=== PATIENT | male | born 1970 | race Caucasian/White ===

== ENCOUNTER 2018-12-22 17:12 | Inpatient (IN) | payer BC ==
[~2018-12-22] VITALS: Ht 170.2 cm; Wt 95.3 kg
[2018-12-22] MEDS ORDERED: ONDANSETRON HCL 4MG/2ML INJ IV STA (19:19)
[2018-12-22] MEDS ORDERED: SODIUM CHLORIDE 0.9% 1,000 ML IV ONE (19:19)
[2018-12-22] MEDS ORDERED: MORPHINE SULFATE 4 MG/ML CPJ (NOT FOR IM USE) IV STA (19:19)
[2018-12-22 19:52] LABS: BASOPHILS % 0.5 % (0.0-2.0); EOSINOPHILS % 1.3 % (0.0-5.0); HEMATOCRIT. 43.3 % (42.0-52.0); HEMOGLOBIN. 14.6 g/dL (14.0-18.0); LYMPHOCYTES % 12.7 % (20.0-50.0); MEAN CORPUSCULAR HEMOGLOBIN 28.5 pg (28.0-32.0); MEAN CORPUSCULAR VOLUME 84.3 fL (80.0-94.0); MEAN PLATELET VOLUME 6.8 fl (7.4-10.4); MONOCYTES % 8.8 % (2.0-8.0); NEUTROPHILS % 76.7 % (40.0-76.0); PLATELET 364 x1000/uL (130-400); RED BLOOD CELL COUNT 5.13 mill/uL (4.7-6.1); RED CELL DISTRIBUTION WIDTH 13.2 % (11.6-14.6)
[2018-12-22 19:53] LABS: CHLORIDE 101 mEq/L (98-107)
[2018-12-22 19:57] LABS: PARTIAL THROMBOPLASTIN TIME 37.3 sec (23.4-31.0); PROTHROMBIN TIME 10.7 sec (9.6-11.0)
[2018-12-22] MEDS ORDERED: ASPIRIN 81MG TABLET PO ONE (21:45)
[2018-12-22] MEDS ORDERED: ACETAMINOPHEN 325MG TABLET PO PRN (22:00)
[2018-12-22] MEDS ORDERED: ONDANSETRON HCL 4MG/2ML INJ IV PRN (23:30)
[2018-12-22] MEDS ORDERED: MAGNESIUM/ALUMINUM HYDROXIDE/SIMETHICONE 30ML UDC PO PRN (23:30)
[2018-12-22] MEDS ORDERED: LEVOFLOXACIN 500MG PREMIX 100 ML IV SCH (23:30)
[2018-12-22] MEDS ORDERED: CLONIDINE 0.1MG TABLET PO PRN (23:30)
[2018-12-22] MEDS ORDERED: GUAIFENESIN 200MG/10ML SUGAR FREE UDC PO PRN (23:30)
[2018-12-22] MEDS ORDERED: LORAZEPAM 0.5MG TABLET PO PRN (23:30)
[2018-12-22] MEDS ORDERED: VANCOMYCIN 1 G PREMIX 200 ML IV SCH (23:30)
[2018-12-23 01:09] LABS: CLARITY URINE CLEAR (CLEAR); COLOR URINE YELLOW (YELLOW); KETONES URINE NEGATIVE (NEGATIVE); LEUKOCYTE ESTERASE URINE NEGATIVE (NEGATIVE); NITRITE URINE NEGATIVE (NEGATIVE); OCCULT BLOOD URINE 1+ (NEGATIVE); PH URINE 5.5 (4.5-8.0); PROTEIN URINE NEGATIVE (NEGATIVE); SPECIFIC GRAVITY URINE 1.013 (1.005-1.030); UROBILINOGEN URINE 0.2 E.U./dL (0.2-1.0)
[2018-12-23] MEDS ORDERED: CLOP75TA33 PO (01:27)
[2018-12-23] MEDS ORDERED: SIMV40TA5 PO (01:27)
[2018-12-23] MEDS ORDERED: ASPI-1159 PO (01:27)
[2018-12-23 01:42] VITALS: BP 100/62
[2018-12-23] MEDS: HYDROCODONE/ACETAMINOPHEN 10/325MG TABLET PO PRN ×3 (01:45→22:20)
[2018-12-23 02:00] VITALS: BP 100/62
[2018-12-23 04:00] VITALS: BP 90/54
[2018-12-23] MEDS ORDERED: VANCOMYCIN 1500MG in DEXTROSE 5% WATER 250ML IV NR (04:00)
[2018-12-23] MEDS: SODIUM CHLORIDE 0.9% INJ 3ML FLUSH IVF SCH ×3 (06:00→22:11)
[2018-12-23] MEDS ORDERED: LEVOFLOXACIN 500MG PREMIX 100 ML IV SCH (06:00)
[2018-12-23 07:36] LABS: BASOPHILS % 0.5 % (0.0-2.0); EOSINOPHILS % 1.9 % (0.0-5.0); HEMATOCRIT. 38.9 % (42.0-52.0); HEMOGLOBIN. 12.8 g/dL (14.0-18.0); MEAN CORPUSCULAR HEMOGLOBIN 28.2 pg (28.0-32.0); MEAN CORPUSCULAR VOLUME 85.9 fL (80.0-94.0); MEAN PLATELET VOLUME 7.2 fl (7.4-10.4); MONOCYTES % 13.7 % (2.0-8.0); NEUTROPHILS % 69.9 % (40.0-76.0); PLATELET 305 x1000/uL (130-400); RED BLOOD CELL COUNT 4.53 mill/uL (4.7-6.1); RED CELL DISTRIBUTION WIDTH 12.9 % (11.6-14.6)
[2018-12-23 07:51] LABS: CHLORIDE 105 mEq/L (98-107)
[2018-12-23 07:56] LABS: PHOSPHORUS 3.4 mg/dL (2.5-4.9)
[2018-12-23 08:00] VITALS: BP 119/73
[2018-12-23] MEDS: CLOPIDOGREL 75MG TABLET PO SCH (09:10)
[2018-12-23] MEDS: KETOROLAC 30MG/ML VIAL IV PRN ×2 (12:11→19:09)
[2018-12-23] MEDS: VANCOMYCIN 1250MG in DEXTROSE 5% WATER 250ML IV SCH (12:11)
[2018-12-23] MEDS: ACETAMINOPHEN 325MG TABLET PO PRN ×3 (12:12→22:10)
[2018-12-23] MEDS ORDERED: TETANUS, DIPHTHERIA, PERTUSSIS VAC/PF 0.5ML (>7YR OLD) IM ONE (16:30)
[2018-12-23] MEDS ORDERED: PIPERACILLIN/TAZOBACTAM 3.375 G in DEXT 5% WATER 100 ML IV SCH (18:00)
[2018-12-23] MEDS: PIPERACILLIN/TAZ 3.375G PREMIX 50 ML IV SCH (19:09)
[2018-12-23] MEDS: ATORVASTATIN CALCIUM 20MG TABLET PO SCH (22:12)
[2018-12-24] MEDS: PIPERACILLIN/TAZ 3.375G PREMIX 50 ML IV SCH ×4 (00:38→17:54)
[2018-12-24] MEDS: VANCOMYCIN 1250MG in DEXTROSE 5% WATER 250ML IV SCH ×2 (01:48→12:49)
[2018-12-24] MEDS: SODIUM CHLORIDE 0.9% INJ 3ML FLUSH IVF SCH ×3 (05:34→21:38)
[2018-12-24 05:45] LABS: BASOPHILS % 0.6 % (0.0-2.0); HEMATOCRIT. 40.4 % (42.0-52.0); HEMOGLOBIN. 13.6 g/dL (14.0-18.0); LYMPHOCYTES % 14.1 % (20.0-50.0); MEAN CORPUSCULAR HEMOGLOBIN 28.4 pg (28.0-32.0); MEAN CORPUSCULAR VOLUME 84.5 fL (80.0-94.0); MEAN PLATELET VOLUME 6.8 fl (7.4-10.4); MONOCYTES % 13.5 % (2.0-8.0); NEUTROPHILS % 68.8 % (40.0-76.0); PLATELET 358 x1000/uL (130-400); RED BLOOD CELL COUNT 4.78 mill/uL (4.7-6.1)
[2018-12-24] MEDS: ACETAMINOPHEN 325MG TABLET PO PRN ×3 (05:45→20:13)
[2018-12-24 06:44] LABS: CHLORIDE 101 mEq/L (98-107)
[2018-12-24 08:00] VITALS: BP 115/68
[2018-12-24] MEDS ORDERED: LACTULOSE 20G/30ML UDC PO NR (08:45)
[2018-12-24] MEDS: CLOPIDOGREL 75MG TABLET PO SCH (09:01)
[2018-12-24] MEDS: HYDROCODONE/ACETAMINOPHEN 10/325MG TABLET PO PRN ×2 (10:34→18:49)
[2018-12-24 12:00] VITALS: BP 124/77
[2018-12-24] MEDS: BISACODYL 10MG SUPP PR SCH ×2 (12:54→17:00)
[2018-12-24 14:00] VITALS: BP 115/68
[2018-12-24 16:00] VITALS: BP 115/65
[2018-12-24 20:00] VITALS: BP 104/68
[2018-12-24] MEDS: ATORVASTATIN CALCIUM 20MG TABLET PO SCH (20:12)
[2018-12-24] MEDS: VANCOMYCIN 1 G PREMIX 200 ML IV SCH (23:02)
[2018-12-25] VITALS: BP 102/63
[2018-12-25] MEDS: PIPERACILLIN/TAZ 3.375G PREMIX 50 ML IV SCH ×4 (01:05→20:53)
[2018-12-25 04:00] VITALS: BP 113/77
[2018-12-25] MEDS: SODIUM CHLORIDE 0.9% INJ 3ML FLUSH IVF SCH ×3 (05:42→20:58)
[2018-12-25] MEDS: VANCOMYCIN 1 G PREMIX 200 ML IV SCH ×3 (06:46→23:48)
[2018-12-25 08:00] VITALS: BP 102/56
[2018-12-25] MEDS: BISACODYL 10MG SUPP PR SCH ×2 (08:53→17:00)
[2018-12-25] MEDS: CLOPIDOGREL 75MG TABLET PO SCH (08:53)
[2018-12-25] MEDS: ACETAMINOPHEN 325MG TABLET PO PRN ×2 (08:56→15:37)
[2018-12-25 16:00] VITALS: BP 104/55
[2018-12-25 20:52] VITALS: BP 103/69
[2018-12-25] MEDS: ATORVASTATIN CALCIUM 20MG TABLET PO SCH (20:54)
[2018-12-26] VITALS: BP 115/76
[2018-12-26] MEDS: PIPERACILLIN/TAZ 3.375G PREMIX 50 ML IV SCH ×3 (01:03→11:02)
[2018-12-26 04:00] VITALS: BP 113/80
[2018-12-26] MEDS: SODIUM CHLORIDE 0.9% INJ 3ML FLUSH IVF SCH (06:03)
[2018-12-26] MEDS: VANCOMYCIN 1 G PREMIX 200 ML IV SCH (06:44)
[2018-12-26] MEDS: CLOPIDOGREL 75MG TABLET PO SCH (08:12)
[2018-12-26] MEDS: BISACODYL 10MG SUPP PR SCH (08:25)
[2018-12-26 13:05] VITALS: BP_SYST 72
== END 2018-12-26 14:09 | disposition home or self-care (01) | DRG 872 ==
LOC: ER 17:12 → 7WST 21:49 → EDBEDREQ 21:59 → EDBEDREQTM 21:59 → ENRESERV 23:30
PROVIDERS: ADMIT Internal Medicine; ATTEND Internal Medicine
PROC: 0H98XZZ Drainage of Buttock Skin, External Approach (ICD-10-PCS; principal; 2018-12-22)
DX: A41.9 Sepsis, unspecified organism (principal); K61.1 Rectal abscess; L02.31 Cutaneous abscess of buttock; D64.9 Anemia, unspecified; E78.00 Pure hypercholesterolemia, unspecified; G44.209 Tension-type headache, unspecified, not intractable; E66.3 Overweight; I10 Essential (primary) hypertension; Z82.49 Family history of ischemic heart disease and other diseases of the circulatory system; Z86.73 Personal history of transient ischemic attack (TIA), and cerebral infarction without residual deficits
CPT/HCPCS: 36415; 71045; 76881; 80048; 80202; 83605; 83735; 84100; 84484; 90715; 93005; 96374; 96375; 99285; J1885; J1956; J2270; J2405; J2543; J3370; J7030; J7040; J7050; J7060